=== PATIENT | male | born 1970 | race Two or more races ===

== ENCOUNTER 2024-11-29 09:42 | Emergency (ER) | payer BC ==
[~2024-11-29] VITALS: Ht 175.3 cm; Wt 100.0 kg
[2024-11-29 09:52] VITALS: O2SAT 97
[2024-11-29] MEDS: MECLIZINE 25MG TABLET PO ONE (10:52)
[2024-11-29] MEDS: SODIUM CHLORIDE 0.9% 1,000 ML IV ONE (11:33)
[2024-11-29 11:37] LABS: BASOPHILS % 0.3 % (0.0-2.0); EOSINOPHILS % 0.5 % (0.0-5.0); HEMATOCRIT. 46.2 % (42.0-52.0); HEMOGLOBIN. 15.6 g/dL (14.0-18.0); LYMPHOCYTES % 21.9 % (20.0-50.0); MEAN PLATELET VOLUME 7.4 fl (7.4-10.4); MONOCYTES % 6.2 % (2.0-8.0); NEUTROPHILS % 71.1 % (40.0-76.0); PLATELET 219 x1000/uL (130-400); RED BLOOD CELL COUNT 5.33 mill/uL (4.7-6.1); RED CELL DISTRIBUTION WIDTH 13.7 % (11.6-14.6)
[2024-11-29 11:49] LABS: CREATININE 0.9 mg/dL (0.6-1.3); UREA NITROGEN BLOOD 14 mg/dL (9-23)
[2024-11-29] MEDS ORDERED: MECL-299 MT (12:45)
[2024-11-29 13:06] VITALS: BP 165/90; PULSE 86; RESP 15; TEMP 37.2; O2SAT 99
== END 2024-11-29 13:07 | disposition home or self-care (01) ==
LOC: ER 09:42
DX: H81.10 Benign paroxysmal vertigo, unspecified ear (principal); B34.9 Viral infection, unspecified; F41.9 Anxiety disorder, unspecified; F32.A Depression, unspecified; E78.00 Pure hypercholesterolemia, unspecified; E03.9 Hypothyroidism, unspecified; G47.30 Sleep apnea, unspecified; Z88.2 Allergy status to sulfonamides; Z79.899 Other long term (current) drug therapy
CPT/HCPCS: 80048; 85025; 36415; 93005; 96360; 99284; J8597; J7030; Z7610; A4606